=== PATIENT | male | born 1980 | race Caucasian/White ===

== ENCOUNTER 2017-11-27 05:52 | Day surgery (SDC) | payer OTHER ==
--- NOTE | 2017-11-26 09:18 | HP ---
HISTORY OF PRESENT ILLNESS: The patient is a 36-year-old male with a several month history of pain, popping and catching in his right knee which developed after misstepping off a ladder. He has had pe rsistent symptoms despite rest, restriction of activities and use of Celebrex. His pain is now inter fering with day-to-day activities. PAST MEDICAL HISTORY: The patient is otherwise in good health. MEDICATIONS: He has been taking Celebrex for his current symptoms and also takes loratadine and Flon ase for allergies. ALLERGIES: He has no medical allergies. He works as a c t tech. FAMILY HISTORY/SOCIAL HISTORY/REVIEW OF SYSTEMS: Otherwise unremarkable. PHYSICAL EXAMINATION: GENERAL: Reveals a healthy male. HEENT: Unremarkable. NECK: Supple. CHEST: Clear. HEART: Regular rate and rhythm. ABDOMEN: Soft, nontender. RECTAL/GENITAL: Deferred. EXTREMITIES: Pertinent findings related to the right knee. There is some puffiness, no definite eff usion. There is normal alignment. There is tenderness over the medial joint line. There is pain an d crepitus with Carli's maneuver. Range of motion is 0-135 degrees. There is pain with further f lexion. There is very slight antalgic gait. There is no instability. Neurovascular exam is intact. LABORATORY AND X-RAY FINDINGS: X-rays of the right knee are normal. MRI scan of the right knee reve als a displaced bucket handle tear of the medial meniscus, mild degenerative changes and a partial te ar of the semimembranosus muscle. IMPRESSION: Internal derangement of right knee with medial meniscal tear, possible component of dege nerative joint disease. PLAN: Arthroscopy right knee with partial medial meniscectomy and/or debridement and shaving. The n ature of the surgery, length of recovery, and potential complications such as infection, loss of mica on, incomplete relief, neurovascular injury, thromboembolic phenomena, post-traumatic degenerative ar thritis, recurrent tear and need for additional treatment or repeat surgery have been discussed in de tail.
[2017-11-26 10:57] VITALS: BMI 30.1
[2017-11-27] MEDS ORDERED: CEFAZOLIN/Water 2 GM/20 ML SYRINGE ONE (06:10)
[2017-11-27] MEDS ORDERED: Bupivacaine/Epinephrine 0.25% 30 ML VIAL ONE (06:35)
[2017-11-27] MEDS ORDERED: Bupivacaine HCl 0.5%/Epinephrine 1:200,000/PF 30 ml Vial ONE (07:00)
[2017-11-27] MEDS ORDERED: Midazolam HCl 2 mg/2 ml Vial ONE (07:02)
[2017-11-27] MEDS ORDERED: Fentanyl 100 MCG/2 ML VIAL ONE (07:25)
[2017-11-27] MEDS ORDERED: Meperidine HCl/PF 25 MG/ML VIAL ONE (08:25)
--- NOTE | 2017-11-27 10:23 | OP ---
DATE OF PROCEDURE: 11/27/2017 SURGEON: Gonsalo Naranjo M.D. ANESTHESIA: General. PREOPERATIVE DIAGNOSIS: Medial meniscal tear, right knee. POSTOPERATIVE DIAGNOSIS: Medial meniscal tear, right knee. PROCEDURE: Arthroscopy right knee with partial medial meniscectomy. OPERATIVE FINDINGS: Examination under anesthesia revealed the knee to be stable. At arthroscopy, th ere was fissuring of the undersurface of the patella, but no full thickness defects and no definite a reas of needing shaving. There was a displaced bucket handle tear at the medial meniscus. ACL was i ntact. Lateral meniscus was intact. NARRATIVE REPORT: After satisfactory anesthesia was induced in supine position, the patient was plac ed in a leg ford and prepped and draped in routine manner. Right leg was elevated, exsanguinated w ith an Esmarch bandage, and the tourniquet inflated to 250 mmHg. [place] arthroscope introduced in t he lateral portal and probe to anteromedial portal. Inflow ____ accomplished through the scope using the Ye[employer]ive arthroscopy pump. Arthroscopy was carried out and the above findings were noted. All f indings were documented with the video printer and hard copies were made. The anterior horn attachme nt of the bucket handle tear of the medial meniscus was detached with meniscal scissors. The scope w as introduced into the anteromedial portal and the meniscal fragment grabbed with meniscal grabbers t hrough the anterolateral portal. The posterior horn attachment was then detached. There was central transpatellar tendon portal with meniscal scissors and the displaced bucket handle fragment then rem gladis after enlarging the anterolateral portal. The scope was reintroduced back into the anterolatera l portal and the remaining rim of the meniscus debrided of any loose irregular edges and balanced and probed and found to be stable. There was still intact rim of at least 3-4 mm. The knee was then co piously irrigated through the scope and all instruments withdrawn. Twenty mL of 0.5% Marcaine with e pinephrine was instilled into the knee joint and an additional 10 mL instilled about the portal sites . The portal sites were closed with 3-0 nylon. A sterile bulky compressive dressing was applied and the tourniquet deflated after 37 minutes. The foot promptly pinked up. The patient was taken from the operating room in stable condition. There were no apparent intraoperative complications. The es timated blood loss was negligible. The patient will be discharged home in satisfactory condition, instructed on ice, elevation, use of c rutches, and home exercise program by the Physical Therapy Department. He was given written wound ca re instructions and prescription for [place] 7.5 for pain, 40 tablets. He will be rechecked in my offi ce in 10-14 days or sooner if there any problems prior to that time.
[2017-11-27] MEDS ORDERED: Lidocaine 1% PF 5 ML VIAL ONE (14:25)
[2017-11-27] MEDS ORDERED: Ondansetron HCl/PF 4 MG/2 ML Vial ONE (14:25)
[2017-11-27] MEDS ORDERED: Ketorolac Tromethamine 30 MG/ML VIAL ONE (14:25)
[2017-11-27] MEDS ORDERED: PROPOFOL 200 MG/20 ML VIAL ONE (14:25)
== END 2017-11-27 10:32 | disposition home or self-care (01) ==
LOC: SDC 05:52
PROVIDERS: ATTEND Orthopaedic Surgery
PROC: 0SBC4ZZ Excision of Right Knee Joint, Percutaneous Endoscopic Approach (ICD-10-PCS; principal; 2017-11-27)
DX: S83.211A Bucket-handle tear of medial meniscus, current injury, right knee, initial encounter (principal); J45.909 Unspecified asthma, uncomplicated; W18.41XA Slipping, tripping and stumbling without falling due to stepping on object, initial encounter; Z79.899 Other long term (current) drug therapy
CPT/HCPCS: G8978-GP-CI; G8979-GP-CI; G8980-GP-CI; J0670; J1885; J2001; J2175; J2250; J2405; J2704; J3010

== ENCOUNTER 2020-10-14 08:18 | Outpatient (CLI) | payer OTHER ==
[2020-10-14 17:02] LABS: SARS-CoV-2 PCR by NAA Not Detected (NotDetected)
== END 2020-10-14 08:19 | disposition home or self-care (01) ==
LOC: LABBT 08:18
PROVIDERS: ATTEND Orthopaedic Surgery
DX: Z01.812 Encounter for preprocedural laboratory examination (principal); S43.432A Superior glenoid labrum lesion of left shoulder, initial encounter; Z20.822 Contact with and (suspected) exposure to COVID-19
CPT/HCPCS: U0003; U0005

== ENCOUNTER 2020-10-19 08:19 | Day surgery (SDC) | payer OTHER ==
[2020-10-18 09:37] VITALS: BMI 31.1
[2020-10-19] MEDS ORDERED: Fentanyl 100 MCG/2 ML VIAL ONE ×2 (08:47→08:52)
[2020-10-19] MEDS ORDERED: Midazolam HCl 2 mg/2 ml Vial ONE ×2 (08:52)
[2020-10-19] MEDS ORDERED: Fentanyl 100 MCG/2 ML VIAL IV PRN (09:44)
[2020-10-19] MEDS ORDERED: Zolpidem Tartrate 5 MG TAB PO PRN (09:45)
[2020-10-19] MEDS ORDERED: Ondansetron PF 4 MG/2 ML Vial IVP PRN (09:45)
[2020-10-19] MEDS ORDERED: HYDROcodone/Acetaminophen 10/325 mg Tablet PO PRN ×2 (09:45)
[2020-10-19] MEDS ORDERED: Promethazine HCl 25 MG/ML VIAL IM PRN (09:45)
[2020-10-19] MEDS ORDERED: traMADol HCl 50 MG TAB PO PRN ×2 (09:45)
[2020-10-19] MEDS ORDERED: Ropivacaine 0.2% 550 ML 550 ML NERVE BLCK SCH (09:45)
[2020-10-19] MEDS ORDERED: Glycopyrrolate 0.2 MG/ML 5 ML SYRINGE ONE (10:35)
[2020-10-19] MEDS ORDERED: Ropivacaine 2% HCl/PF (20 MG/10 ML VIAL) ONE (10:35)
[2020-10-19] MEDS ORDERED: Ondansetron PF 4 MG/2 ML Vial ONE (10:35)
[2020-10-19] MEDS ORDERED: Rocuronium Bromide 10 MG/ML (10ML VIAL) ONE (10:35)
[2020-10-19] MEDS ORDERED: Dexamethasone 20 MG/5 ML VIAL ONE (10:35)
[2020-10-19] MEDS ORDERED: Lidocaine 1% PF 5 ML VIAL ONE (10:35)
[2020-10-19] MEDS ORDERED: Ropivacaine 0.5% HCl/PF (150 MG/30 ML VIAL) ONE (10:35)
[2020-10-19] MEDS ORDERED: PROPOFOL 200 MG/20 ML VIAL ONE (10:35)
[2020-10-19] MEDS ORDERED: Lidocaine 2% Jelly 5 ML TUBE ONE (10:36)
[2020-10-19] MEDS ORDERED: Lidocaine 1% w/Epinephrine 1:100K 20 ML VIAL ONE (11:05)
[2020-10-19] MEDS ORDERED: Ketorolac Tromethamine 30 MG/ML VIAL IVP SCH (12:00)
== END 2020-10-19 14:29 | disposition home or self-care (01) ==
LOC: SDC 08:19
PROVIDERS: ATTEND Orthopaedic Surgery
PROC: 0MM24ZZ Reattachment of Left Shoulder Bursa and Ligament, Percutaneous Endoscopic Approach (ICD-10-PCS; principal; 2020-10-19)
PROC: 3E0T3BZ Introduction of Anesthetic Agent into Peripheral Nerves and Plexi, Percutaneous Approach (ICD-10-PCS; principal; 2020-10-19)
PROC: 0LS40ZZ Reposition Left Upper Arm Tendon, Open Approach (ICD-10-PCS; principal; 2020-10-19)
DX: S43.432A Superior glenoid labrum lesion of left shoulder, initial encounter (principal); M25.312 Other instability, left shoulder; G89.18 Other acute postprocedural pain; F17.290 Nicotine dependence, other tobacco product, uncomplicated; J45.909 Unspecified asthma, uncomplicated
CPT/HCPCS: A4306; C1713; J0690; J1100; J2250; J2405; J2704; J2795; J3010

== ENCOUNTER 2025-04-01 08:55 | Outpatient (CLI) | payer BC | END 2025-04-01 08:56 | disposition home or self-care (01) | LOC: SCSULT 08:55 | PROVIDERS: ATTEND Nurse Practitioner Family | DX: E04.1 Nontoxic single thyroid nodule (principal) | CPT/HCPCS: 76536 ==